=== PATIENT | female | born 1960 | race Caucasian/White ===

== ENCOUNTER → 2020-06-02 | Day surgery (SDC) | payer MEDICARE ==
[~2020-06-02] MED LIST: ALLOPURINOL 10100 MG PO; ASPIRIN CHEWABL81 MG PO; CARAFATE1 GM PO; FLONASE ALLER15.8 ML; HUMALOG 50/50; HYDROCODON-ACE1 EAC2 PO; ISOSORBIDE ER PO; JANUVIA50 MG PO; LIPITOR40 MG PO; LOPID600 MG PO; LOPRESSOR50 MG PO; METFORMIN HCL500 MG PO; MOBIC7.5 MG PO; NEURONTIN300 MG PO; NITROQUIK SL0.4 MG SL; NORVASC5 MG PO; PRINIVIL10 MG PO; PROAIR DIGIHAL90 MCG INH; PROTONIX 40MG T40 MG PO; RANEXA500 MG PO; SINGULAIR10 MG PO; VENLAFAXINE HCL75 M2 PO
== END | disposition home or self-care (01) ==
LOC: FAS 08:07
DX: K29.50 Unspecified chronic gastritis without bleeding (principal); K57.32 Diverticulitis of large intestine without perforation or abscess without bleeding; K58.9 Irritable bowel syndrome, unspecified; K21.9 Gastro-esophageal reflux disease without esophagitis; D50.9 Iron deficiency anemia, unspecified; G47.30 Sleep apnea, unspecified; E11.9 Type 2 diabetes mellitus without complications; I25.10 Atherosclerotic heart disease of native coronary artery without angina pectoris; F17.210 Nicotine dependence, cigarettes, uncomplicated; I10 Essential (primary) hypertension; M19.90 Unspecified osteoarthritis, unspecified site; J44.9 Chronic obstructive pulmonary disease, unspecified; E78.00 Pure hypercholesterolemia, unspecified; E78.5 Hyperlipidemia, unspecified; Z90.710 Acquired absence of both cervix and uterus; Z88.2 Allergy status to sulfonamides; Z95.818 Presence of other cardiac implants and grafts; Z88.1 Allergy status to other antibiotic agents; Z88.0 Allergy status to penicillin; Z88.5 Allergy status to narcotic agent; Z79.899 Other long term (current) drug therapy; Z90.49 Acquired absence of other specified parts of digestive tract; Z80.0 Family history of malignant neoplasm of digestive organs; Z98.51 Tubal ligation status; Z20.822 Contact with and (suspected) exposure to COVID-19
CPT/HCPCS: 88305; J2250; J2704; J7120